=== PATIENT | female | born 1985 | race Hispanic/Latino ===

== ENCOUNTER 2018-09-05 16:25 | Emergency (ER) | payer OTHER ==
[2018-09-05 17:58] LABS: APPEARANCE,URINE Clear (CLEAR); BILIRUBIN,URINE Negative (NEGATIVE); COLOR,URINE Yellow (YELLOW); GLUCOSE, URINE (UA) Negative (NEGATIVE); KETONES,URINE Negative (NEGATIVE); LEUKOCYTE ESTERASE ,URINE Negative (NEGATIVE); NITRATE,URINE Negative (NEGATIVE); OCCULT BLOOD,URINE Negative (NEGATIVE); PROTEIN,URINE Negative (NEGATIVE)
[2018-09-05 18:00] LABS: HCG,QUAL RESULT NEGATIVE (NEGATIVE)
[2018-09-05] MEDS ORDERED: DEXAMETHASONE SOD PHOSPHATE 10MG/ML 1ML VIAL ONE (18:29)
[2018-09-05] MEDS ORDERED: KETOROLAC TROMETHAMINE 60 MG/2 ML VIAL ONE (18:29)
== END 2018-09-05 18:51 | disposition home or self-care (01) ==
LOC: EDH 16:25
DX: R51 Headache (principal); R42 Dizziness and giddiness; H53.8 Other visual disturbances; E11.9 Type 2 diabetes mellitus without complications
CPT/HCPCS: 70450; 81003; 81025; 82948; 96372 ×2; 99284; J1100; J1885

== ENCOUNTER 2021-04-12 07:43 | Day surgery (SDC) | payer OTHER ==
[2021-04-11 09:47] LABS: BASOPHILS % (AUTO) 0.4 % (0.0-5.0); EOSINOPHILS % (AUTO) 2.7 % (0.0-8.0); HEMATOCRIT 38.9 % (36-48); LYMPHOCYTES % (AUTO) 25.6 % (21.0-51.0); MEAN CORPUSCULAR HEMOGLOBIN 29.8 pg (27.0-33.0); MEAN CORPUSCULAR HGB CONC 34.2 g/dL (32.0-36.0); MONOCYTES % (AUTO) 4.8 % (3.0-13.0); PLATELET COUNT (AUTO) 307 K/uL (130-400); RED BLOOD CELL COUNT(AUTO) 4.47 MIL/uL (4.00-5.50); RED CELL DISTRIBUTION WIDTH 12.8 % (11.0-15.5); WHITE BLOOD COUNT (AUTO) 12.4 K/uL (4.8-10.8)
[2021-04-11 09:52] LABS: APPEARANCE,URINE Clear (CLEAR); BILIRUBIN,URINE Negative (NEGATIVE); COLOR,URINE Dark Yellow (YELLOW); GLUCOSE, URINE (UA) Negative (NEGATIVE); KETONES,URINE Trace mg/dL (NEGATIVE); LEUKOCYTE ESTERASE ,URINE Small (NEGATIVE); NITRATE,URINE Negative (NEGATIVE); OCCULT BLOOD,URINE Negative (NEGATIVE); PH,URINE 5.5 (5.0-8.0); PROTEIN,URINE Trace mg/dL (NEGATIVE)
[2021-04-11 09:54] LABS: CREATININE 0.9 mg/dL (0.5-1.5); POTASSIUM 4.6 mmol/L (3.5-5.1)
[2021-04-11 10:01] LABS: BACTERIA,URINE Rare /HPF (None Seen); SQUAMOUS EPITHELIAL CELL,UR Few /HPF (0-2)
[2021-04-11 12:26] VITALS: BP 167/84
[2021-04-12] VITALS (19 sets, daily range): BP systolic 112–143; BP diastolic 58–89
[~2021-04-12] VITALS: Ht 171.4 cm; Wt 125.7 kg
[~2021-04-12 07:43] MED LIST: LEVO500T89 PO; SEMA1PEN3 SQ; TAMS-1 PO
[2021-04-12] MEDS ORDERED: CEFTRIAXONE 1G VIAL ONE (08:15)
[2021-04-12] MEDS ORDERED: GENTAMICIN 80 MG/NS 100 ML PB 100 ML IV ONE (08:16)
[2021-04-12] MEDS ORDERED: 0.9%NACL 1000ML 1,000 ML IV ONE (08:16)
[2021-04-12] MEDS ORDERED: NEOSTIGMINE 5MG/5ML SYR IV ONE (09:44)
[2021-04-12] MEDS ORDERED: LIDOCAINE PF 100MG/5ML (2%) SYRINGE 5ML ONE (09:44)
[2021-04-12] MEDS ORDERED: ROCURONIUM 10MG/1ML SYR 10 MG/ML ML ONE (09:44)
[2021-04-12] MEDS ORDERED: DEXAMETHASONE SOD PHOSPHATE 10MG/ML 1ML VIAL ONE (09:44)
[2021-04-12] MEDS ORDERED: GLYCOPYRROLATE 1 MG/5 ML SYRINGE ONE (09:44)
[2021-04-12] MEDS ORDERED: SUCCINYLCHOLINE 200MG/10ML SYR ONE (09:44)
[2021-04-12] MEDS ORDERED: ONDANSETRON 4MG INJ ONE (09:44)
[2021-04-12] MEDS ORDERED: MIDAZOLAM HCL 1 MG/ML 2ML VIAL ONE (09:44)
[2021-04-12] MEDS ORDERED: PROPOFOL 10 MG/ML 20ML VIAL IV ONE (09:45)
[2021-04-12] MEDS ORDERED: FENTANYL CITRATE PF 50 MCG/1 ML 2ML VIAL ONE (09:45)
[2021-04-12] MEDS ORDERED: MEPERIDINE-PF 25 MG/ML SYG ONE ×2 (09:47→09:50)
[2021-04-12] MEDS ORDERED: IOHEXOL-350 50ML VIAL IV ONE (10:11)
== END 2021-04-12 13:50 | disposition home or self-care (01) ==
LOC: DAH 07:43
PROVIDERS: ATTEND Urology
DX: N20.1 Calculus of ureter (principal); Z20.822 Contact with and (suspected) exposure to COVID-19; J44.9 Chronic obstructive pulmonary disease, unspecified; E66.01 Morbid (severe) obesity due to excess calories; E11.9 Type 2 diabetes mellitus without complications; M10.9 Gout, unspecified; Z90.49 Acquired absence of other specified parts of digestive tract; Z90.89 Acquired absence of other organs; Z98.84 Bariatric surgery status; Z98.890 Other specified postprocedural states; Z98.891 History of uterine scar from previous surgery
CPT/HCPCS: 36415 ×2; 52356; 74420; 80048; 81001; 82360; 82948 ×2; 84703; 85025; 87088; 87635; A4215; A4221; A4222; A4223; A4354; A4358; A4649; A4663; A6260; C1758; C1769; C1894; C2617; C9803; J0330; J0696; J1100; J1580; J2001; J2175 ×2; J2250; J2405; J2704; J2710; J3010; J3490; J7030 ×2; Q9967